=== PATIENT | male | born 1955 | race Caucasian/White ===

== ENCOUNTER 2017-03-29 01:48 | Emergency (ER) | payer OTHER ==
[2017-03-29 02:34] LABS: Bilirubin Negative (Negative); Blood, Urine Moderate (Negative); Glucose, Urine (Dipstick) Negative (Negative); Ketone, Urine Negative (Negative); Nitrite Negative (Negative); Protein, Urine (Dipstick) Negative (Neg-Trace)
[2017-03-29 02:36] LABS: Bacteria/HPF None Seen HPF (None Seen); Hyaline Casts/LPF 0-3 HYALINE CAST LPF (0-3 Hyaline); Squamous Epithelial None Seen HPF (0-3); WBC/HPF 0-3 HPF (0-3)
[2017-03-29 02:46] LABS: #Eosinphils 0.1 thou/uL (0.0-0.7); #Lymphocytes 1.5 thou/uL (1.20-3.40); #Neutrophils 11.5 thou/uL (1.40-6.50); %Basophils 0.1 % (0.0-1.0); %Eosinophils 0.7 % (0.0-10.0); %Lymphocytes 10.6 % (21.0-51.0); %Monocytes 6.8 % (0.0-10.0); Hematocrit 44.7 % (42.0-52.0); Mean Platelet Volume 7.2 fL (7.4-10.4); Red Blood Cell (RBC) Count 4.82 mill/uL (4.70-6.10); White Blood Cell (WBC) Count 14.1 thou/uL (4.8-10.8)
[2017-03-29 03:12] LABS: ALT (SGPT) 32 U/L (8-55); AST (SGOT) 21 U/L (5-34); Alkaline Phosphatase 72 U/L (40-150); Anion Gap 12 mmol/L (10-20); BUN (Urea Nitrogen) 16 mg/dL (8.4-25.7); Bilirubin, Total 1.4 mg/dL (0.2-1.2); Calc. Creatinine Clearance 0 mL/min (70-130); Calcium 9.5 mg/dL (7.8-10.44); Carbon Dioxide 27 mmol/L (23-31); Chloride 102 mmol/L (98-107); Estimated GFR-MDRD 49; Globulin 2.5 g/dL (2.4-3.5); Protein, Total 7.2 g/dL (5.8-8.1)
[2017-03-29] MEDS ORDERED: Morphine 2 mg/2ml in 0.9% NaCl PF SYRINGE ONE (05:39)
[2017-03-29] MEDS ORDERED: Amlodipine 5 MG TAB ONE (05:40)
[2017-03-29] MEDS ORDERED: Ondansetron HCl/PF 4 MG/2 ML Vial ONE (05:40)
[2017-03-29] MEDS ORDERED: Ketorolac Tromethamine 30 MG/ML VIAL ONE (05:40)
--- NOTE | 2017-03-29 09:43 | CT ---
PRELIMINARY REPORT/[facility]/EMERGENCY AFTER HOURS PROCEDURE: EXAM: CT Abdomen and Pelvis Without Intravenous Contrast EXAM DATE/TIME: Exam ordered 03/29/2017 4:51 AM CLINICAL HISTORY: 61 years old, male; Pain; Abdominal pain; Flank; Left; Patient HX: R/O stone TECHNIQUE: Axial computed tomography images of the abdomen and pelvis without intravenous contrast. Coronal reformatted images were created and reviewed. COMPARISON: No relevant prior studies available. FINDINGS: Lower thorax: No acute findings. ABDOMEN: Liver: There is a diffuse decrease in hepatic parenchymal density, consistent with fatty infiltration . Gallbladder and bile ducts: The gallbladder is normal. There is no evidence of biliary ductal dilatio n. No calcified stones. Pancreas: The pancreas is normal. No ductal dilation. Spleen: BasisThe spleen is normal. Adrenals: The adrenal glands are normal. Kidneys and ureters: There is a 6 x 5 x 8 mm mid LEFT ureteral obstructing calculus with severe LEFT hydroureteronephrosis and perinephric stranding. The right kidney is normal. Stomach and bowel: Normal. No obstruction. No mucosal thickening. Appendix: No findings to suggest acute appendicitis. PELVIS: Bladder: The bladder is normal. No stones. Reproductive: The prostate gland demonstrates moderate nonspecific enlargement. The seminal vesicles are normal. ABDOMEN and PELVIS: Intraperitoneal space: Normal. No free air. No significant fluid collection. Bones/joints: No acute fracture. No dislocation. Soft tissues: Normal. Vasculature: Normal. No abdominal aortic aneurysm. Lymph nodes: Normal. No enlarged lymph nodes. IMPRESSION: There is a 6 x 5 x 8 mm mid LEFT ureteral obstructing calculus with severe LEFT hydroureteronephrosis and perinephric stranding. Thank you for allowing us to participate in the care of your patient. Dictated and Authenticated by: Waldo Mcleod MD 03/29/2017 5:32 AM Central Time ([place] & [place]) FINAL REPORT CT ABDOMEN AND PELVIS WITHOUT CONTRAST: Date: 03/29/17 IMPRESSION: 6-8 mm calculus in the left ureter is seen producing left hydronephrosis. I am in agreement with the preliminary report issued by [facility]. POS: [facility]
== END 2017-03-29 07:31 | disposition home or self-care (01) ==
LOC: ERS 01:48
DX: N13.2 Hydronephrosis with renal and ureteral calculous obstruction (principal); I48.91 Unspecified atrial fibrillation; I10 Essential (primary) hypertension; Z79.899 Other long term (current) drug therapy
CPT/HCPCS: 36415; 74176; 80053; 81003; 81015; 85025; 96361; 96374; 96375; J1885; J2270; J2405

== ENCOUNTER 2020-11-21 11:56 | Outpatient (CLI) | payer MEDICARE, OTHER ==
[2020-11-21 13:10] LABS: Hemoglobin 15.8 g/dL (13.5-17.5); Mean Corpuscular HGB CONC 34.6 g/dL (32.0-36.0); Mean Corpuscular Hemoglobin 30.9 pg (27.0-33.0); Mean Corpuscular Volume 89.3 fl (81.2-95.1); Mean Platelet Volume 10.2 fl (7.4-10.4); Platelet Count 214 10x3/uL (150-450); RBC Distribution Width 13.2 % (11.5-14.5); Red Blood Cell (RBC) Count 5.12 10x6/uL (4.32-5.72); White Blood Cell (WBC) Count 9.7 10x3/uL (3.5-10.5)
[2020-11-21 13:17] LABS: Anion Gap 14 mmol/L (10-20); BUN (Urea Nitrogen) 9 mg/dL (8.4-25.7); Calc. Creatinine Clearance 0 mL/min (70-130); Calcium 10.1 mg/dL (7.8-10.44); Carbon Dioxide 25 mmol/L (23-31); Chloride 105 mmol/L (98-107); Glucose 142 mg/dL (80-115); Sodium 140 mmol/L (136-145)
[2020-11-21 13:25] LABS: INR-International Normal Ratio 1.1; Prothrombin Time 11.9 sec (9.5-12.1)
[2020-11-21 20:55] LABS: SARS-CoV-2 PCR by NAA Not Detected (NotDetected)
== END 2020-11-21 11:57 | disposition home or self-care (01) ==
LOC: LABBT 11:56
PROVIDERS: ATTEND Internal Medicine Cardiovascular Disease
DX: Z01.812 Encounter for preprocedural laboratory examination (principal); I48.0 Paroxysmal atrial fibrillation; Z20.822 Contact with and (suspected) exposure to COVID-19
CPT/HCPCS: 80048; 85027; 85610; U0003; U0005